=== PATIENT | female | born 1965 | race Caucasian/White ===

== ENCOUNTER 2022-02-26 11:56 | Emergency (ER) | payer BC | END 2022-02-26 12:45 | disposition home or self-care (01) | LOC: LB.ED 11:56 | DX: T82.838A Hemorrhage due to vascular prosthetic devices, implants and grafts, initial encounter (principal); Z88.1 Allergy status to other antibiotic agents | CPT/HCPCS: 99282; 99283 ==

== ENCOUNTER 2022-02-28 15:06 | Emergency (ER) | payer BC ==
[2022-02-28] MEDS ORDERED: Meclizine 12.5 MG Tab PO ONE (15:40)
== END 2022-02-28 16:32 | disposition home or self-care (01) ==
LOC: LB.ED 15:06
DX: R42 Dizziness and giddiness (principal); Z88.2 Allergy status to sulfonamides; Z88.1 Allergy status to other antibiotic agents
CPT/HCPCS: 99283; A9270